=== PATIENT | female | born 1980 | race Two or more races ===

== ENCOUNTER 2023-08-30 20:58 | Emergency (ER) | payer MEDICAID, OTHER ==
[~2023-08-30] VITALS: Ht 147.3 cm; Wt 112.8 kg
[2023-08-30 21:15] VITALS: BP 145/78; PULSE 85; RESP 16; TEMP 98.3
[2023-08-30 23:03] VITALS: O2SAT 95
[2023-08-30] MEDS: IBUPROFEN 600 MG TAB PO ONE (23:16)
== END 2023-08-30 23:32 | disposition home or self-care (01) ==
LOC: ER 20:58
DX: J06.9 Acute upper respiratory infection, unspecified (principal)
CPT/HCPCS: 71046